=== PATIENT | male | born 1965 | race Caucasian/White ===

== ENCOUNTER 2018-01-13 12:24 | Inpatient (IN) ==
[2018-01-13] MEDS ORDERED: Naloxone 0.4 MG/ML INJ IVP PRN (14:59)
[2018-01-13] MEDS ORDERED: Isovue-370 500 ML INFUS..BTL IV ONE (15:08)
--- NOTE | 2018-01-13 15:35 | Internal Med History&Physical ---
<Amy King Jo-Ann - Last Filed: 01/13/18 16:17> Date of Encounter: 01/13/18 Time of Encounter: 15:27 Internal Medicine - H&P: HPI Chief complaint: Dyspnea Admitted From: Hospital to Hospital Transfer Plans for Post Hospital Care: Home History of present illness: Mr. Mann is a 52 year old male who has history of HTN, CAD, with 8 stents-Per patient report. The patient is ordered bipap at but does not use due to losing a piece to the machine. The patient has been non-adherent with all medications for the past 1 year. He stated that he would cough until he was sob and then passed out. The patient indicated that he has not seen his PCP or his strategic planning consultant in 1 year. The indicated that his strategic planning consultant is at [facility]. I requested the records. The patient went to [facility] where he was SOB, and tachycardic. ABG at [facility] showed PH OF 7.44,, PCO2 41, PO2 58, HCO3 28, and CO2 29. The patient was given lasix 40 mg iv and continues to diurese well. Currently sating 94% on 2 L. The patient is dusky and states he is still a little sob. Continuous pulse ox ordered. D-dimer is elevated at 519 @ [place]. BNP is 517. Pedal edema absent. Lungs are diminished anteriorly and posteriorly.Will get Ct of chest to R/O PE. Consulted with cardiology, who will see the patient. Past Med Surg Social Fam HX - Past Medical History Medical history: asthma, hypertension, myocardial infarction Psychiatric history: no psych history - Social History Smoking Status: Current every day smoker Packs per day: 2 Smokeless Tobacco Status: No Alcohol use: rarely Drug use: marijuana Internal Medicine - H&P: Meds No Known Home Drugs 01/13/18 [History] 3 Allergy/AdvReac Type Severity Reaction Status Date / Time No Known Allergies Allergy Verified 01/13/18 11:06 All Systems PM: A 10-system review of systems was performed and is negative for pertinent findings except as documented above in the HPI. - Constitutional Constitutional: fever(s) (Subjective), no chills, no night sweats - EENT Eyes: no change in vision, no discharge, no pain, no photophobia Ears: no ear discharge, no ear pain, no tinnitus Nose, mouth and throat: no dysphagia, no nasal discharge, no neck pain, no sore throat - Cardiovascular Cardiovascular ROS IM: dyspnea, no chest pain, no diaphoresis, no lightheadedness, no palpitations, no syncope - Respiratory Respiratory: cough, dyspnea, no wheezing, no excessive phlegm production - Gastrointestinal Gastrointestinal: no abdominal pain, no diarrhea, no hematemesis, no hematochezia, no melena, no nausea, no vomiting - Musculoskeletal Musculoskeletal ROS IM: no numbness, no tingling - Integumentary Integumentary IM: no rash, no unusual bruising - Neurological Neurological ROS: no confusion, no convulsions, no focal weakness, no numbness, no tingling, no tremor(s) - Hematologic/Lymphatic Hematologic/Lymphatic: no easy bruising - Constitutional Vitals: Temp Pulse Resp BP Pulse Ox 98.2 F 117 16 156/90 97 01/13/18 14:12 01/13/18 14:12 01/13/18 14:12 01/13/18 14:12 01/13/18 14:12 General appearance: Present: A&O X 3 - Head Head exam: Present: atraumatic, normocephalic - Eye Eye exam: Present: PERRL, conjuntiva pink, sclera anicteric Pupils: Present: PERRL - Neck Neck exam general surgery: Present: supple, trachea midline. Absent: lymphadenopathy - Respiratory Respiratory exam: Present: decreased breath sounds. Absent: accessory muscle use, rales, rhonchi, wheezes - Cardiovascular Cardiovascular exam: Present: RRR, +S1, +S2. Absent: diastolic murmur, gallop, rubs, systolic murmur - GI/Abdominal GI/Abdominal exam: Present: normal bowel sounds, soft, no peritoneal signs. Absent: distended, tenderness - Extremities Exam Extremities exam: Present: normal inspection (however the patient was having left leg cramps), warm, radial pulses palpable and symmetrical. Absent: calf tenderness, cyanotic, pedal edema - Neurological Exam Neurological exam: Present: CN II-XII intact, oriented X3, no focal deficits. Absent: pronater drift, facial droop, speech deficit - Skin Skin exam: Present: dry, intact - Assessment and plan (1) Congestive heart failure Current Visit: No Status: Acute Assessment and plan: It is likely that the patient is in HF due to non-adherence to medications for the past 1 year and not following up with his pcp and strategic planning consultant for the same amount of time. Cardiology consult Furosemide 40 mg ivp q8h Restart home meds when verified by pharmacy Qualifiers: Heart failure type: unspecified Heart failure chronicity: acute Qualified Code(s): I50.9 - Heart failure, unspecified (2) HTN (hypertension) Current Visit: Yes Status: Acute Assessment and plan: Bp uncontrolled Hydralazine IV prn systolic bp gt 150 Restart home meds when verified with pharmacy Qualifiers: Hypertension type: essential hypertension Qualified Code(s): I10 - Essential (primary) hypertension (3) CAD (coronary artery disease) Current Visit: Yes Status: Acute Assessment and plan: Patient indicated history of 8 heart stents. Medication non-adherence. Requested records from [facility] Cardiac monitoring Qualifiers: Coronary Disease-Associated Artery/Lesion type: unspecified vessel or lesion type [place] vs. transplanted heart: unspecified whether [place] or transplanted heart Associated angina: with unspecified angina Qualified Code (s): I25.119 - Atherosclerotic heart disease of [place] coronary artery with unspecified angina pectoris - Time Spent With Patient Total time spent is greater than 50% in coordination of care (as documented) at patient's floor/unit and/or counseling patient: <Ezio Perez P - Last Filed: 01/13/18 20:45> Date of Encounter: 01/13/18 Internal Medicine - H&P: HPI History of present illness: Mr. Mann is a 52 year old male All Systems PM: A 10-system review of systems was performed and is negative for pertinent findings except as documented above in the HPI. - Constitutional Vitals: Temp Pulse Resp BP Pulse Ox 97.3 F L 109 18 153/105 96 01/13/18 20:31 01/13/18 20:31 01/13/18 20:31 01/13/18 20:31 01/13/18 20:31 Internal Med - H&P Results - Labs Labs: Cardiac Enzymes 01/13/18 Range/Units 15:33 Troponin I < 0.03 (< 0.04) ng/mL - Impressions ITS Impressions Chest CTA 01/13/18 15:08 IMPRESSION: 1. Slightly limited examination for pulmonary artery emboli, but no large central, lobar or segmental pulmonary artery emboli identified. 2. Irregular increased density in the bilateral lower lobes may reflect atelectasis, but superimposed infectious pneumonitis is not excluded. 3. Diffuse hazy ground-glass density can be seen in the setting of pulmonary edema. There is also moderate centrilobular emphysematous change. 4. 2 cm nodule in the right upper lobe. Correlation with any prior outside imaging is recommended. If none can be obtained to ensure stability, PET-CT, percutaneous soft tissue sampling or short-term follow-up imaging (3 months) is recommended for further evaluation. Additional nodular density in the superior segment of the left lower lobe may reflect rounded atelectasis versus true lung nodule, and could also be followed up with PET-CT, or three-month follow-up chest CT. D/ / Grayson Deal / Grayson Deal Interpreting Provider: Grayson Deal - Attending Attestation I have seen and evaluated patient. I have performed my own physical examination. I have discussed case with admitting [employer]. I agree with her assessment and plan as documented in her H&P. Briefly, patient presented to OSH ED with symptoms consistent with CHF exacerbation. He has been non- compliant with medications for last 1 year. We will diurese gently with IV lasix. Trend troponins. Obtain ECHO. Consult cardiology. Continue telemetry and pulse ox. Supplemental O2 as needed. Will add low dose steroids and nebs for wheezing and possible COPD component. - Time Spent With Patient Total time spent is greater than 50% in coordination of care (as documented) at patient's floor/unit and/or counseling patient:
[2018-01-13] MEDS ORDERED: methylPREDNISolone 125 MG/2 ML VIAL IVP ONE (16:30)
[2018-01-13] MEDS: Furosemide 40 MG/4 ML VIAL IVP SCH ×2 (17:42→21:40)
[2018-01-13] MEDS: Acetaminophen 325 MG TABLET PO PRN (18:41)
--- NOTE | 2018-01-13 18:53 | Cardiology Consult Note ---
Date of Encounter: 01/13/18 Time of Encounter: 18:51 Assessment and Plan (1) Congestive heart failure Current Visit: No Status: Acute Unknown history of congestive heart failure currently mildly congested with underlying emphysema and lung nodule. Mild to moderate elevation in BNP currently improved in symptoms after gentle diuresis. Continue to optimize medical management with gentle diuresis and obtain echocardiogram to rule out structural heart abnormalities. Qualifiers: Heart failure type: unspecified Heart failure chronicity: acute Qualified Code(s): I50.9 - Heart failure, unspecified (2) CAD (coronary artery disease) Current Visit: Yes Status: Acute History of 8 stents in the past at an outside hospital. Will obtain records for review. Cardiac markers negative 1, we will continue to follow Qualifiers: Coronary Disease-Associated Artery/Lesion type: unspecified vessel or lesion type [place] vs. transplanted heart: unspecified whether [place] or transplanted heart Associated angina: with unspecified angina Qualified Code (s): I25.119 - Atherosclerotic heart disease of [place] coronary artery with unspecified angina pectoris Discussion w patient/family: The assessment and plan as outlined above was discussed with the patient and/or family members who expressed understanding and agreement. All questions were answered. Thank you for involving us in the care of your patient. Please call with any questions. History of Present Illness Consult date: 01/13/18 Consult reason: SOB Chief complaint: Cant breath History of present illness: Mr. Mann is a 52 year old male with history of coronary artery disease status post 8 stents at an outside hospital. Patient unsure if he has any cardiomyopathy but has recently experienced increasing shortness of breath, dyspnea on exertion, orthopnea over the last few weeks. Patient currently slightly improved in his symptoms likely after diuresis through the emergency department. Records of his coronary artery disease and recent cardiac testing pending. We will continue gentle diuresis and resume medical management. I could not obtain echocardiogram to evaluate for structural heart abnormalities. Initial cardiac markers negative with mild to moderate increase in his BNP. Past Med Surg Social Fam HX - Past Medical History Medical history: asthma, hypertension, myocardial infarction Psychiatric history: no psych history - Social History Smoking Status: Current every day smoker Packs per day: 2 Smokeless Tobacco Status: No Alcohol use: rarely Drug use: marijuana Medications and Allergies No Known Home Drugs 01/13/18 [History] 3 Allergy/AdvReac Type Severity Reaction Status Date / Time No Known Allergies Allergy Verified 01/13/18 11:06 All Systems Review: The remainder of the systems were reviewed and are negative Physical Examination Vital Signs, Last 4 Hours Temp Pulse Resp BP Pulse Ox 01/13/18 17:09 99.0 F 119 18 178/116 94 General: Conversant, No Apparent Distress HEENT: Atraumatic, Normocephaly, Mucus Membranes Moist Neck: No JVD, Normal carotid pulses Cardiac: Reg Rate and Rhythm, Normal S1 and S2, No Murmur Lungs: Normal Breath Sounds (Diminished air entry bibasilar), No Wheeze, Rales, Rhonchi Neuro: Alert and responsive, No focal deficits noted Abdomen: Soft, Non-Tender Skin: No rashes noted on visualized skin Musculoskeletal: No Chest Wall Tenderness Extremities: No Clubbing, No Cyanosis, No Edema, Normal Pulses Results Lab Results 01/13/18 15:33 Troponin I < 0.03 Consult Discharge Plan - Plan Referrals: NONE,PCP [Primary Care Provider] -
[2018-01-13] MEDS ORDERED: Ipratropium/Albuterol Neb 3 ML IH PRN (20:44)
[2018-01-13 20:48] LABS: Bilirubin,Urine Negative (Negative); Blood,Urine Negative (Negative); Clarity,Urine Clear (Clear); Color,Urine Yellow (Yellow); Glucose,Urine (UA) Normal (Normal); Ketones,Urine Negative (Negative); Leukocyte Esterase,Urine Negative (Negative); Nitrite,Urine Negative (Negative); Protein,Urine Trace mg/dL (Neg-Trace); Specific Gravity,Urine 1.015 (1.010-1.025); Urobilinogen,Urine Normal (Normal)
[2018-01-13 20:55] LABS: Bacteria,Urine None Seen per hpf (None-Few); Hyaline Casts,Urine None Seen per lpf (None-Few); RBC,Urine 0-3 per hpf (0-3); Squamous Epithelial Cell,Urine Few per lpf (None-Few); WBC,Urine 0-3 per hpf (0-3)
[2018-01-13] MEDS ORDERED: Furosemide 40 MG/4 ML VIAL IVP SCH (21:00)
[2018-01-14 05:36] LABS: Basophils % 0.1 %; Hematocrit 54.6 % (37.5-50.1); Hemoglobin 17.8 g/dL (12.9-16.9); Immature Granulocytes % 0.3 % (0-4); Lymphocytes # 0.7 K/mcL (0.6-4.6); Lymphocytes % 5.5 %; Mean Corpuscular HGB Conc 32.6 g/dL (31.6-35.5); Mean Corpuscular Hemoglobin 28.2 pg (28.0-33.3); Mean Corpuscular Volume 86.5 fL (83.0-100.0); Monocytes # 0.2 K/mcL (0.0-1.3); Monocytes % 1.4 %; Neutrophils # 11.7 K/mcL (1.6-8.9); Platelet Count 226 K/mcL (140-400); Red Blood Count 6.31 M/mcL (4.19-5.50); Segmented Neutrophils % 92.7 %
[2018-01-14 05:48] LABS: BUN/Creatinine Ratio 20 (6-26); Blood Urea Nitrogen 29 mg/dL (6-20); Calcium 10.1 mg/dL (8.6-10.3); Carbon Dioxide 26 mEq/L (23-29); Chloride 97 mEq/L (98-107); Chol/HDL Ratio 5.9 (0-4.9); Cholesterol 246 mg/dL (< 200); Glucose 166 mg/dL (70-105); HDL Cholesterol 42 mg/dL (40-59); LDL Cholesterol,Calculated 188 mg/dL (0-99); Magnesium 2.3 mg/dL (1.6-2.6); Osmolality,Calculated 294 (280-300); Potassium 4.4 mEq/L (3.5-5.1); Sodium 137 mEq/L (136-145); Triglycerides 81 mg/dL (< 150); eGFR For African Americans > 60 (> 60); eGFR For Non-African Americans 52 (> 60)
[2018-01-14] MEDS ORDERED: *HR* Heparin 5,000 UNIT/ML VIAL SQ SCH (06:00)
[2018-01-14] MEDS: Acetaminophen 325 MG TABLET PO PRN (06:22)
[2018-01-14 08:14] VITALS: BP 145/101
[2018-01-14] MEDS ORDERED: MethylPREDNISolone 40 MG/ML VIAL IVP SCH (09:00)
[2018-01-14] MEDS: Furosemide 40 MG/4 ML VIAL IVP SCH (09:07)
--- NOTE | 2018-01-14 10:09 | Internal Med Progress Note ---
Date of Encounter: 01/14/18 Time of Encounter: 09:48 - Assessment and plan (1) Congestive heart failure Current Visit: Yes Status: Acute Assessment and plan: suspected. Presented with shortness of breath. Chest CTA with pulmonary edema. BNP 343. Cont IV lasix. Echo pending. Cardiology following Qualifiers: Heart failure type: unspecified Heart failure chronicity: acute Qualified Code(s): I50.9 - Heart failure, unspecified (2) CAD (coronary artery disease) Current Visit: Yes Status: Acute Assessment and plan: hx 8 stents at OSH. Serial troponin negative. Denies chest pain. EKG with sinus tachycardia and nonspecific ST abnormalities. Echo pending. Cardiology following. Qualifiers: Coronary Disease-Associated Artery/Lesion type: unspecified vessel or lesion type [place] vs. transplanted heart: unspecified whether [place] or transplanted heart Associated angina: with unspecified angina Qualified Code (s): I25.119 - Atherosclerotic heart disease of [place] coronary artery with unspecified angina pectoris (3) Pneumonitis Current Visit: Yes Status: Acute Assessment and plan: chest CTA showed irregular increased density in the bilateral lower lobes may reflect atelectasis, but superimposed infectious pneumonitis could not be excluded. Mild leukocytosis. Start Levaquin. (4) Acute respiratory failure with hypoxia Current Visit: Yes Status: Acute Assessment and plan: Does not wear oxygen at home. Requiring 2-3 L O2 to maintain oxygen saturations 92% or above. Chest CTA negative for pulmonary embolism. Acute respiratory failure multifactorial with likely CHF, possible pneumonia/COPD exacerbation. Continue treating underlying causes. Wean O2 as able. (5) HTN (hypertension) Current Visit: Yes Status: Acute Assessment and plan: uncontrolled. Cont BB, add amlodipine. Monitor BP and titrate PRN Qualifiers: Hypertension type: essential hypertension Qualified Code(s): I10 - Essential (primary) hypertension (6) Lung nodule Current Visit: Yes Status: Acute Assessment and plan: Chest CTA with 2 cm nodule and right upper lobe and nodular density in the left lower lobe. Will need short-term follow-up imaging in 3 months or PET-CT (7) DVT prophylaxis Current Visit: Yes Status: Acute Assessment and plan: heparin - Time Spent With Patient Total time spent is greater than 50% in coordination of care (as documented) at patient's floor/unit and/or counseling patient: - Subjective Interval history: Seen and examined at bedside. Patient is new to me, information obtained from chart review and patient report. Says he feels better and wants to go home. Denies chest pain and shortness of breath although he appears mildly dyspneic. He still requiring supplemental O2. He is agreeable to stay for cardiology evaluation. - Constitutional Vitals: Temp Pulse Resp BP Pulse Ox 97.9 F 110 20 145/101 93 01/14/18 08:13 01/14/18 08:13 01/14/18 08:13 01/14/18 08:13 01/14/18 04:12 General appearance: Present: A&O X 3, morbidly obese - Head Head exam: Present: atraumatic, normocephalic - Eye Eye exam: Present: PERRL, conjuntiva pink, sclera anicteric Pupils: Present: PERRL - Neck Neck exam general surgery: Present: supple, trachea midline. Absent: lymphadenopathy - Respiratory Respiratory exam: Present: decreased breath sounds, respiratory distress ( Appears mildly dyspneic). Absent: accessory muscle use, rales, rhonchi, wheezes - Cardiovascular Cardiovascular exam: Present: RRR, +S1, +S2. Absent: diastolic murmur, gallop, rubs, systolic murmur - GI/Abdominal GI/Abdominal exam: Present: normal bowel sounds, soft, no peritoneal signs. Absent: distended, tenderness - Extremities Exam Extremities exam: Present: warm, radial pulses palpable and symmetrical. Absent : calf tenderness, cyanotic, pedal edema - Neurological Exam Neurological exam: Present: CN II-XII intact, oriented X3, no focal deficits. Absent: pronater drift, facial droop, speech deficit - Skin Skin exam: Present: dry, intact Internal Medicine: Result - Labs CBC & Chem 7: 01/14/18 03:30 01/14/18 03:30 Labs: Short CBC 01/14/18 Range/Units 03:30 WBC 12.7 H (4.3-11.1) K/mcL Hgb 17.8 H D (12.9-16.9) g/dL Hct 54.6 H (37.5-50.1) % Plt Count 226 (140-400) K/mcL Neutrophils # 11.7 H (1.6-8.9) K/mcL BMP 01/14/18 03:30 Sodium 137 Potassium 4.4 Chloride 97 L Carbon Dioxide 26 BUN 29 H Creatinine 1.44 H Glucose 166 H Calcium 10.1 Cardiac Enzymes 01/13/18 01/13/18 01/14/18 Range/Units 15:33 22:49 03:30 Troponin I < 0.03 < 0.03 < 0.03 (< 0.04) ng/mL Urine 01/13/18 Range/Units 20:34 Urine Color Yellow (Yellow) Urine Clarity Clear (Clear) Urine pH 7.0 (5.0-8.0) pH Units Ur Specific [place] 1.015 (1.010-1.025) Urine Protein Trace (Neg-Trace) mg/dL Urine Glucose (UA) Normal (Normal) mg/dL - Impressions Impressions Chest CTA 01/13/18 15:08 IMPRESSION: 1. Slightly limited examination for pulmonary artery emboli, but no large central, lobar or segmental pulmonary artery emboli identified. 2. Irregular increased density in the bilateral lower lobes may reflect atelectasis, but superimposed infectious pneumonitis is not excluded. 3. Diffuse hazy ground-glass density can be seen in the setting of pulmonary edema. There is also moderate centrilobular emphysematous change. 4. 2 cm nodule in the right upper lobe. Correlation with any prior outside imaging is recommended. If none can be obtained to ensure stability, PET-CT, percutaneous soft tissue sampling or short-term follow-up imaging (3 months) is recommended for further evaluation. Additional nodular density in the superior segment of the left lower lobe may reflect rounded atelectasis versus true lung nodule, and could also be followed up with PET-CT, or three-month follow-up chest CT. D/ / Grayson Deal / Grayson Deal Interpreting Provider: Grayson Deal Consult Discharge Plan - Plan Referrals: NONE,PCP [Primary Care Provider] -
[2018-01-14] MEDS ORDERED: amLODIPine 5 MG TABLET PO SCH (10:30)
--- NOTE | 2018-01-14 10:55 | Cardiology Progress Note ---
Date of Encounter: 01/14/18 Time of Encounter: 10:53 Assessment and Plan (1) Congestive heart failure Current Visit: Yes Status: Acute Unclear type. TTE pending to determine systolic vs diastolic. BNP 343 on admission. CXR with mild interstitial edema. On IV Lasix 40mg BID. Cumulative I/O -1860mL. Creatinine mildly worsened, 1.44 ( 1.26). Monitor closely. Recommend transition to PO Lasix prior to d/c. Pt reports feeling much better. Dyspnea improved, LE edema resolved. Records from [facility] not yet received. Recommend 2L fluid and Na restriction, daily weights, Strict I/Os. If EF is preserved on echo, cardiology will sign off. Recommend outpt follow-up in 1-2 weeks, will coordinate. If EF is reduced, would recommend pt stay until records are obtained to compare. Qualifiers: Heart failure type: unspecified Heart failure chronicity: acute Qualified Code(s): I50.9 - Heart failure, unspecified (2) CAD (coronary artery disease) Current Visit: Yes Status: Acute Hx of CAD and PCI, reportedly 8 stents per pt. Reports last stent was ~2015 at [facility]. Pt denies chest pain. Troponins negative x 3. Recommend ASA, Statin, BB. 4 beat run NSVT on tele. Increase lopressor to 50mg BID. Qualifiers: Coronary Disease-Associated Artery/Lesion type: unspecified vessel or lesion type [place] vs. transplanted heart: unspecified whether [place] or transplanted heart Associated angina: with unspecified angina Qualified Code (s): I25.119 - Atherosclerotic heart disease of [place] coronary artery with unspecified angina pectoris Discussion w patient/family: The assessment and plan as outlined above was discussed with the patient and/or family members who expressed understanding and agreement. All questions were answered. Thank you for involving us in the care of your patient. Please call with any questions. I will discuss all the above with Dr. Reed and make changes as necessary. Subjective Principal diagnosis: CHF Interval history: Pt reports symptoms have improved. Dyspnea is improved, LE edema resolved. Denies chest pain. Objective Vital Signs, Last 4 Hours Temp Pulse Resp BP 01/14/18 08:13 97.9 F 110 20 145/101 Vital Signs Temp Pulse Resp BP Pulse Ox 01/14/18 08:13 97.9 F 110 20 145/101 01/14/18 04:12 100 18 151/97 93 01/13/18 23:50 98.0 F 100 16 147/100 94 01/13/18 20:31 97.3 F L 109 18 153/105 96 01/13/18 18:54 98.4 F 123 18 163/107 94 01/13/18 17:09 99.0 F 119 18 178/116 94 01/13/18 14:12 98.2 F 117 16 156/90 97 Intake and Output 01/13/18 01/14/18 01/14/18 23:59 07:59 15:59 Intake Total 240 / 240 Output Total 1000 / 1000 200 / 200 175 / 175 Balance -760 / -760 -200 / -200 -175 / -175 Intake: Oral 240 / 240 Output: Urine 1000 / 1000 200 / 200 175 / 175 Other: Meal Dinner Percent of Meal Consumed 40% Weight 107.8 kg Patient Weight 01/14/18 23:59 Weight 107.8 kg General: Conversant, No Apparent Distress HEENT: Atraumatic, Normocephaly, Mucus Membranes Moist Neck: Normal carotid pulses Cardiac: Reg Rate and Rhythm, Normal S1 and S2, No Murmur Lungs: Other (diminished) Neuro: Alert and responsive, No focal deficits noted Abdomen: Soft, Non-Tender Skin: No rashes noted on visualized skin Musculoskeletal: No Chest Wall Tenderness Extremities: No Clubbing, No Cyanosis, No Edema, Normal Pulses Results 01/14/18 03:30 01/14/18 03:30 Lab Results 01/13/18 01/13/18 01/14/18 15:33 22:49 03:30 WBC Hgb Hct Plt Count Sodium Potassium Chloride Carbon Dioxide BUN Creatinine Glucose Calcium Magnesium Troponin I < 0.03 < 0.03 < 0.03 B-Natriuretic Peptide 01/14/18 01/14/18 01/14/18 03:30 03:30 03:30 WBC 12.7 H Hgb 17.8 H D Hct 54.6 H Plt Count 226 Sodium 137 Potassium 4.4 Chloride 97 L Carbon Dioxide 26 BUN 29 H Creatinine 1.44 H Glucose 166 H Calcium 10.1 Magnesium 2.3 Troponin I B-Natriuretic Peptide 343 H Short CBC 01/14/18 Range/Units 03:30 WBC 12.7 H (4.3-11.1) K/mcL Hgb 17.8 H D (12.9-16.9) g/dL Hct 54.6 H (37.5-50.1) % Plt Count 226 (140-400) K/mcL Neutrophils # 11.7 H (1.6-8.9) K/mcL BMP 01/14/18 Range/Units 03:30 Sodium 137 (136-145) mEq/L Potassium 4.4 (3.5-5.1) mEq/L Chloride 97 L (98-107) mEq/L Carbon Dioxide 26 (23-29) mEq/L BUN 29 H (6-20) mg/dL Creatinine 1.44 H (0.70-1.30) mg/dL Glucose 166 H (70-105) mg/dL Calcium 10.1 (8.6-10.3) mg/dL Cardiac Enzymes 01/14/18 01/13/18 01/13/18 Range/Units 03:30 22:49 15:33 Troponin I < 0.03 < 0.03 < 0.03 (< 0.04) ng/mL Urine 01/13/18 Range/Units 20:34 Urine Color Yellow (Yellow) Urine Clarity Clear (Clear) Urine pH 7.0 (5.0-8.0) pH Units Ur Specific [place] 1.015 (1.010-1.025) Urine Protein Trace (Neg-Trace) mg/dL Urine Glucose (UA) Normal (Normal) mg/dL Impressions Chest CTA 01/13/18 15:08 IMPRESSION: 1. Slightly limited examination for pulmonary artery emboli, but no large central, lobar or segmental pulmonary artery emboli identified. 2. Irregular increased density in the bilateral lower lobes may reflect atelectasis, but superimposed infectious pneumonitis is not excluded. 3. Diffuse hazy ground-glass density can be seen in the setting of pulmonary edema. There is also moderate centrilobular emphysematous change. 4. 2 cm nodule in the right upper lobe. Correlation with any prior outside imaging is recommended. If none can be obtained to ensure stability, PET-CT, percutaneous soft tissue sampling or short-term follow-up imaging (3 months) is recommended for further evaluation. Additional nodular density in the superior segment of the left lower lobe may reflect rounded atelectasis versus true lung nodule, and could also be followed up with PET-CT, or three-month follow-up chest CT. D/ / Grayson Deal / Grayson Deal Interpreting Provider: Grayson Deal Active Medications Acetaminophen (Tylenol) 650 mg PO Q6HR PRN PRN Reason: Pain Stop: 07/15/18 18:17 Last Admin: 01/14/18 06:22 Dose: 650 mg Albuterol/Ipratropium (Duoneb) 3 ml IH [id number] PRN PRN Reason: Shortness Of Breath/Wheezing Stop: 07/15/18 20:45 Amlodipine Besylate (Norvasc) 10 mg PO DAILY GLADYS PRN Reason: Protocol Stop: 07/16/18 10:31 Furosemide (Lasix) 40 mg IVP BID [facility] Stop: 07/15/18 17:01 Last Admin: 01/14/18 09:07 Dose: 40 mg Heparin Sodium (Porcine) (Heparin Lock) 500 unit IV ONCE PRN PRN Reason: Port Flush while in RADIOLOGY Stop: 01/15/18 15:09 Heparin Sodium (Porcine) (Heparin) 5,000 unit SQ Q12HCO GL[facility]YS Stop: 07/16/18 06:01 Last Admin: 01/14/18 06:19 Dose: Not Given Hydralazine HCl (Hydralazine) 10 mg IVP Q4HR PRN PRN Reason: Hypertension Stop: 07/15/18 20:01 Last Admin: 01/13/18 17:43 Dose: 10 mg Levofloxacin/Dextrose (Levaquin Premix 750mg/150 Ml) 750 mg in 150 mls @ 100 mls/hr IVPB DAILY GL[facility]YS PRN Reason: Protocol Stop: 07/16/18 11:01 Metoprolol Tartrate (Lopressor) 25 mg PO BID GLADYS Stop: 07/15/18 18:46 Last Admin: 01/14/18 09:07 Dose: 25 mg Naloxone HCl (Narcan) 0.4 mg IVP Q2MIN PRN PRN Reason: SEE COMMENTS Stop: 07/15/18 15:00 Prednisone (Prednisone) 40 mg PO DAILY [facility] Stop: 01/19/18 09:01 - Imaging and Cardiology Echo: pending - EKG Interpretation EKG results cardiology: other (12 hr tele AVG HR 101, SR, 4 beat run NSVT) Consult Discharge Plan - Plan Referrals: NONE,PCP [Primary Care Provider] -
[2018-01-14] MEDS ORDERED: Levofloxacin 750 MG/150 ML 750 MG/150 ML BAG IVPB SCH (11:00)
--- NOTE | 2018-01-14 11:12 | Event Note ---
Date of Encounter: 01/14/18 Time of Encounter: 11:10 Notified by RN that patient was leaving AGAINST MEDICAL ADVICE. I spoke with patient and express my concern with his persistent shortness of breath and hypoxia. He is angry, aggressive and hostile. I advised him to stay for further workup/treatment however he refused. Says he feels better and is going home. Advised him to return to the ER if chest pain/SOB recurs or worsens.
[2018-01-15] MEDS ORDERED: predniSONE 20 MG TABLET PO SCH (09:00)
== END 2018-01-14 11:07 | disposition left against medical advice (07) | DRG 194 ==
LOC: 3BNU
PROVIDERS: ADMIT Nurse Practitioner Family; ATTEND Family Medicine